=== PATIENT | female | born 1980 | race Caucasian/White ===

== ENCOUNTER → 2020-02-21 | Outpatient (CLI) | payer BC ==
[~2020-02-21] MED LIST: CARI4.5C PO; FAMO40OR4 PO; MIDO10TA PO; OXCA150T19 PO; PRIM50TA24 PO; SPIR100T4 PO; TRAZ-123 PO
== END | disposition home or self-care (01) ==
LOC: LAB 12:35
PROVIDERS: ATTEND Internal Medicine Gastroenterology
DX: K21.9 Gastro-esophageal reflux disease without esophagitis (principal); Z20.828 Contact with and (suspected) exposure to other viral communicable diseases
CPT/HCPCS: U0003-CS

== ENCOUNTER → 2020-02-24 | Day surgery (SDC) | payer BC ==
[~2020-02-24] MED LIST changes: +HYDROmorphone 2 MG/ML VIAL IV PRN; +IV RINGERS,LACTATED 1000ML 1,000 ML IV SCH; +LIDOCAINE 2% PF 5 ML VIAL. ONE; +MORPHINE SULFATE 2 MG/ML VIAL. IV PRN; +ONDANSETRON PF 4 MG/2 ML VIAL. IV PRN; +PROCHLORPERAZINE 10 MG/2 ML VIAL. IV PRN; +PROPOFOL 10 MG/ML (20ML) VIAL. IV ONE; +fentaNYL PF VIAL 100 MCG/2 ML VIAL IV PRN
[2020-02-24 10:03] VITALS: BP 116/64
--- NOTE | 2020-02-25 15:07 | PATHOLOGY ---
[facility] Accession Number: [id number] . 01 Material submitted: . PART A: small bowel - SMALL BOWEL BIOPSY PART B: stomach - GASTIC ANTRUM/BODY BIOPSY. Modifiers: body PART C: esophagus - DISTAL ESOPHAGUS BIOPSY. Modifiers: distal . 01 Clinical history: . GERD/NAUSEA . 02 Diagnosis: A. Small bowel biopsies: - Non-specific duodenitis. . B. Gastric biopsies, gastric antrum and gastric body: - Chronic gastritis, mild. . C. Esophageal biopsies, distal esophagus: - Reflux esophagitis. Q 02/25/2020 1009 Local . 02 Comment: Sections of the small bowel biopsy reveal segments of duodenal and small intestine mucosa. There is focal congestion and microhemorrhages within the tips of the mucosal villi. The mucosa shows an increased number of chronic inflammatory cells with focally admixed neutrophils. The mucosal villi show no sprue-like changes. The findings are supportive of the diagnosis of a non-specific duodentitis. . Sections of the gastric biopsy reveal segments of gastric antral and gastric body mucosa showing congestion and mild chronic inflammation. A properly controlled immunoperoxidase stain for Helicobacter is negative for Helicobacter organisms. . Sections of the distal esophageal biopsy reveal segments of hyperplastic squamous esophageal mucosa in addition to a segment of gastric mucosa and esophagogastric mucosa. The latter shows moderate to marked active chronic inflammation. The findings are consistent with reflux esophagitis. There is no evidence of Ramires's change, dysplasia, or malignancy. (JPM/db; 02/25/2020) . Special stain performed: Immunoperoxidase stain for Helicobacter on B1 . Electronically signed: . Samy Leonard MD, Pathologist NPI- [id number] . 01 Gross description: . A. Received in formalin labeled "Sebas, Farzaneh, small bowel BX" are multiple barker-brown soft tissue fragments measuring in aggregate 0.7 x 0.5 x 0.1 cm. The specimen is submitted entirely in A1. . B. Received in formalin labeled "Sebas, Farzaneh, gastric antrum and body BX" are multiple barker-brown soft tissue fragments measuring in aggregate 0.9 x 0.6 x 0.1 cm. The specimen is submitted entirely in B1. . C. Received in formalin labeled "Sebas, Farzaneh, distal esophagus BX" are two barker-brown soft tissue fragments measuring in aggregate 0.6 x 0.5 x 0.1 cm. The specimen is submitted entirely in C1. ([facility]; 02/24/2020) [facility] 02/24/2020 173 Local . 02 Pathologist provided ICD-10: K29.80, K29.50, K21.0 . 02 CPT . 267207, 666538, 849906, [id number] Specimen Comment: A courtesy copy of this report has been sent to [phone] Specimen Comment: Report sent to Performed at: 01 [facility] [address] [facility] [address], [place] [id number] MD Jermaine Garcia MD Phone: [phone] Performed at: 02 [facility] [address] [place], [place] [id number] MD Samy Leonard MD Phone: [phone]
== END | disposition home or self-care (01) ==
LOC: ENDOS 07:20
PROVIDERS: ATTEND Internal Medicine Gastroenterology
DX: K21.0 Gastro-esophageal reflux disease with esophagitis (principal); K29.50 Unspecified chronic gastritis without bleeding; K31.89 Other diseases of stomach and duodenum; F41.9 Anxiety disorder, unspecified; F32.9 Major depressive disorder, single episode, unspecified; M19.90 Unspecified osteoarthritis, unspecified site; Z98.890 Other specified postprocedural states; Z79.899 Other long term (current) drug therapy; Z88.8 Allergy status to other drugs, medicaments and biological substances
CPT/HCPCS: 43239; J2704